=== PATIENT | female | born 1985 | race African-American/Black ===

== ENCOUNTER 2017-08-07 18:41 | Emergency (ER) | payer MEDICAID, OTHER ==
[~2017-08-07] VITALS: Ht 152.4 cm; Wt 61.7 kg
[~2017-08-07 18:41] MED LIST: IBUPROFEN600 MG ORAL; NEXIUM40 MG ORAL; PREDNISONE20 MG ORAL; RANITIDINE HCL150 MG ORAL; TYLENOL EXTRA500 MG ORAL; ZOFRAN ODT4 MG ORAL; ZOFRAN4 M1 ORAL
[2017-08-07] MEDS ORDERED: NKM (18:54)
[2017-08-07 19:05] VITALS: BP 107/64
[2017-08-07] MEDS ORDERED: Methocarbamol 500mg tab ORAL ONE (19:15)
[2017-08-07] MEDS ORDERED: TYLENOL EXTRA500 MG ORAL (19:23)
[2017-08-07] MEDS ORDERED: ROBAXIN500 MG PO (19:23)
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
[2017-08-07 19:40] VITALS: BP 0/0
== END 2017-08-07 19:40 | disposition home or self-care (01) ==
LOC: EMR 19:25
DX: M54.2 Cervicalgia (principal); R07.9 Chest pain, unspecified
CPT/HCPCS: 99284

== ENCOUNTER 2017-09-03 15:48 | Emergency (ER) | payer MEDICAID, OTHER ==
[~2017-09-03] VITALS: Ht 152.4 cm; Wt 61.2 kg
[~2017-09-03 15:48] MED LIST changes: +NKM; +ROBAXIN500 MG PO
[2017-09-03 16:22] VITALS: BP 101/68
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
--- NOTE | 2017-09-03 16:56 | Diagnostic Imaging Report ---
Indication: Chest pain Technique: XRAY Chest 2v Comparison: 04/04/2014 Findings: Heart size and mediastinal contours within normal limits and stable compared to the prior exam. There is no focal airspace consolidation, pleural effusion or pneumothorax. No acute osseous abnormality identified. Cholecystectomy clips noted in the right upper quadrant. Impression: No radiographic evidence of acute cardiopulmonary disease.
[2017-09-03 17:01] VITALS: BP_SYST 84; BP_SYST 99; BP_DIAS 50; BP_DIAS 60
[2017-09-03 17:54] LABS: BASOPHILS % (AUTO) 2.6 % (0.0-2.0); EOSINOPHILS % (AUTO) 1.4 % (0.0-3.0); HEMOGLOBIN 11.9 G/DL (12.0-16.0); LYMPHOCYTES % (AUTO) 43.3 % (20.0-45.0); MEAN CORPUSCULAR VOLUME 79 FL (80-99); MONOCYTES % (AUTO) 11.2 % (1.0-10.0); NEUTROPHILS % (AUTO) 41.5 % (45.0-75.0); PLATELET COUNT 214 K/UL (150-450); RED BLOOD COUNT 4.71 M/UL (4.20-5.40); RED CELL DISTRIBUTION WIDTH 13.1 % (11.6-14.8); WHITE BLOOD COUNT 4.1 K/UL (4.8-10.8)
[2017-09-03] MEDS ORDERED: IBUPROFEN600 MG ORAL (18:22)
[2017-09-03 18:35] VITALS: BP 108/68
== END 2017-09-03 18:35 | disposition home or self-care (01) ==
LOC: EMR 16:30
DX: S20.212A Contusion of left front wall of thorax, initial encounter (principal); V43.52XA Car driver injured in collision with other type car in traffic accident, initial encounter; Y92.410 Unspecified street and highway as the place of occurrence of the external cause; D64.9 Anemia, unspecified; R20.0 Anesthesia of skin
CPT/HCPCS: 36415; 71046; 85025; 96360; 99283

== ENCOUNTER 2017-09-29 17:44 | Emergency (ER) | payer OTHER ==
[~2017-09-29] VITALS: Ht 152.4 cm; Wt 62.6 kg
[2017-09-29 17:54] VITALS: BP 100/61
--- NOTE | 2017-09-29 18:24 | Emergency Room Report ---
History of Present Illness General Chief Complaint: Toothache Source: Patient, Medical Record Present Illness HPI 32-year-old female patient presents ER complaining of tooth pain for the past 2 days. Patient reports history of, infection, was seen by dentist 2 days ago and earlier today. Reports that she is currently being treated with Keflex and Motrin. States Motrin is not helping with her pain. States that that does not give her further pain medication. Denies fever, chest pain, shortness of breath. Reports she is going to have her wisdom teeth extracted. Allergies: Coded Allergies: METOCLOPRAMIDE (Verified Allergy, Unknown, 09/03/17) Patient History Past Medical History: see triage record Last Menstrual Period: 09/20/17 Reviewed Nursing Documentation: PMH: Agreed; PSxH: Agreed Nursing Documentation-PMH Past Medical History: No History, Except For Hx Cardiac Problems: No - anemia Hx Cancer: No Hx Gastrointestinal Problems: Yes - pancreatitis Hx Neurological Problems: No Review of Systems All Other Systems: negative except mentioned in HPI Physical Exam Vital Signs Date Time Temp Pulse Resp B/P (MAP) Pulse Ox O2 Delivery O2 Flow Rate FiO2 09/29/17 17:54 97.9 69 18 100/61 98 Room Air 97.9 Sp02 EP Interpretation: reviewed, normal General Appearance: well appearing, no apparent distress, alert, GCS 15, non- toxic Head: normocephalic, atraumatic Eyes: bilateral eye normal inspection, bilateral eye PERRL ENT: hearing grossly normal, normal pharynx, no angioedema, normal voice, TMs + canals normal, uvula midline, moist mucus membranes, other - multiple dental caries noted, no erythema or edema noted, no drainage Neck: full range of motion, no bony tend Respiratory: lungs clear, normal breath sounds, no rhonchi, no respiratory distress, no accessory muscle use, no wheezing, speaking full sentences Cardiovascular #1: regular rate, rhythm, no edema Neurologic: alert, oriented x3, responsive, motor strength/tone normal, sensory intact Psychiatric: mood/affect normal Skin: no rash Lymphatic: no adenopathy Medical Decision Making PA Attestation Dr. Nevarez is my supervising Physician whom patient management has been discussed with. Diagnostic Impression: Primary Impression: Toothache ER Course Pt. presents to the ED c/o dental infection. Ddx considered but are not limited to cellulitis, abscess, dental caries, gingivitis. Does not require imaging at this time. Vital signs: are WNL, pt. is afebrile ED INTERVENTIONS: CURES reports, no pain medication refills this month. Will provide patient with pain medication in the ER. Patient will be driven home by brother. Nontoxic appearing, speaking full sentences, no active draining, mild edema, no trismus or vision changes. No facial swelling, no erythema or edema, low suspicion for cellulitis or preseptal cellulitis. F/u with PCP and dentist for further treatment for pain symptoms. Continue taking medications as previously instructed. DISCHARGE: continue taking medications as previously instructed. At this time pt. is stable for d/c to home. Patient is resting comfortably, in no acute distress, nontoxic appearing, talking and smiling without difficulty. Will provide printed patient care instructions and any necessary prescriptions. Care plan and follow up instructions have been discussed with the patient prior to discharge. Patient instructed to follow-up with primary care provider in 2 - 3 days. Followup with dentist. Patient questions asked and answered. Patient reports understanding and agreement to treatment plan. ER precautions given. Patient instructed to return to ER immediately for any new or worsening of symptoms including but not limited to fever, worsening of pain symptoms, worsening of erythema, red streaking. - Please note that this Emergency Department Report was dictated using [employer] worker technology software, occasionally this can lead to erroneous entry secondary to interpretation by the dictation equipment. Last Vital Signs Date Time Temp Pulse Resp B/P (MAP) Pulse Ox O2 Delivery O2 Flow Rate FiO2 09/29/17 17:54 97.9 69 18 100/61 98 Room Air 97.9 Disposition: HOME, SELF-CARE Condition: Stable Referrals: Pauline SMITH,REFERRING (PCP) Patient Instructions: Dental Pain Additional Instructions: Followup with primary care provider in 3 -5 days. Followup with dentist discuss further treatment pain symptoms. Take medications as directed. Patient questions asked and answered. ER precautions given, patient instructed to return to ER immediately for any new or worsening of symptoms. Mo Celaya Sep 29, 2017 18:24
[2017-09-29] MEDS ORDERED: Tylenol #3 tab (300mg/30mg) ORAL ONE (18:30)
[2017-09-29] MEDS ORDERED: Norco 5mg/325mg tab ORAL ONE (18:30)
[2017-09-29] MEDS ORDERED: Ketorolac 30mg Inj IM ONE (18:30)
[2017-09-29 19:13] VITALS: BP 122/71
== END 2017-09-29 19:14 | disposition home or self-care (01) ==
LOC: EMR 18:06
DX: K08.89 Other specified disorders of teeth and supporting structures (principal)
CPT/HCPCS: 96372; 99283; J1885

== ENCOUNTER 2018-02-18 20:14 | Emergency (ER) | payer OTHER ==
[~2018-02-18] VITALS: Ht 152.4 cm; Wt 61.2 kg
[2018-02-18 20:38] VITALS: BP 100/66
[2018-02-18] MEDS ORDERED: BACTRIM DS TAB1 EAC1 ORAL (20:49)
[2018-02-18] MEDS ORDERED: IBUPROFEN600 MG ORAL (20:49)
[2018-02-18 20:55] VITALS: BP 103/67
--- NOTE | 2018-02-18 21:22 | Emergency Room Report ---
History of Present Illness General Chief Complaint: Pain Source: Patient Present Illness HPI Patient presents with complaints of right finger pain on the ring finger Pain started 2-3 days ago Patient feels the pain of the distal tip area Patient also had her fingernails painted 3 days ago Denies any other trauma denies any fevers or chills pain is worse with touch after soaking the finger in warm water it was somewhat improved Denies any discharge Allergies: Coded Allergies: METOCLOPRAMIDE (Verified Allergy, Unknown, 09/03/17) Patient History Past Medical History: see triage record Pertinent Family History: none Last Menstrual Period: 02/07/2018 Now: No Reviewed Nursing Documentation: PMH: Agreed; PSxH: Agreed Nursing Documentation-PMH Past Medical History: No Stated History Hx Cardiac Problems: No - anemia Hx Cancer: No Hx Gastrointestinal Problems: Yes - pancreatitis Hx Neurological Problems: No Review of Systems All Other Systems: negative except mentioned in HPI Physical Exam Vital Signs Date Time Temp Pulse Resp B/P (MAP) Pulse Ox O2 Delivery O2 Flow Rate FiO2 02/18/18 20:32 98.1 69 18 100/66 100 Room Air Sp02 EP Interpretation: reviewed, normal General Appearance: well appearing, no apparent distress Head: normocephalic, atraumatic Eyes: bilateral eye PERRL, bilateral eye EOMI ENT: hearing grossly normal, normal pharynx, TMs + canals normal, uvula midline Neck: supple Respiratory: lungs clear Cardiovascular #1: regular rate, rhythm Musculoskeletal: other - Some discomfort palpated to the tip of the right ring finger on the palmar aspect mild swelling is noted no obvious fluctuance Neurologic: alert, oriented x3 Skin: other - As above Lymphatic: no adenopathy Procedures Splinting Splinting : Consent: Verbal Location: Right ring finger Splint: Finger splint Pre-Proc Neuro Vasc Exam: normal Post-Proc Neuro Vasc Exam: normal Patient Tolerated: Well Complications: None Medical Decision Making Diagnostic Impression: Primary Impression: finger infection ER Course Patient has findings consistent with likely early felon formation. No obvious paronychia no obvious fluctuance at this point Patient denies any other trauma Given the early presentation patient will be treated symptomatically And will have close follow-up Last Vital Signs Date Time Temp Pulse Resp B/P (MAP) Pulse Ox O2 Delivery O2 Flow Rate FiO2 02/18/18 20:55 98.2 62 18 103/67 98 Room Air Status: improved Disposition: HOME, SELF-CARE Condition: Improved Scripts Ibuprofen* (MOTRIN*) 600 Mg Tablet 600 MG ORAL Q8H PRN for For Pain, #20 TAB 0 Refills Prov: Antonieta Nevarez DO 02/18/18 Trimethoprim/Sulfamethoxazole 160/800* (BACTRIM DS TABLET*) 1 Each Tablet 1 TAB ORAL Q12H, #14 TAB 0 Refills Prov: Antonieta Nevarez DO 02/18/18 Referrals: Pauline SMITH,REFERRING (PCP) Patient Instructions: Fingertip Infection Additional Instructions: Patient is provided with the discharge instructions notified to follow up with primary doctor in the next 2-3 days otherwise return to the er with any worsening symptoms. Please note that this report is being documented using [employer] technology. This can lead to erroneous entry secondary to incorrect interpretation by the dictating instrument. Antonieta Nevarez DO Feb 18, 2018 21:22
== END 2018-02-18 20:56 | disposition home or self-care (01) ==
LOC: EMR 20:46
DX: L08.9 Local infection of the skin and subcutaneous tissue, unspecified (principal)
CPT/HCPCS: 29130; 99283

== ENCOUNTER 2018-02-21 18:05 | Emergency (ER) | payer OTHER ==
[~2018-02-21] VITALS: Ht 152.4 cm; Wt 62.6 kg
[~2018-02-21 18:05] MED LIST changes: +BACTRIM DS TAB1 EAC1 ORAL
--- NOTE | 2018-02-21 18:59 | Emergency Room Report ---
History of Present Illness General Chief Complaint: Skin Rash/Abscess Source: Patient Present Illness HPI 32-year-old female patient presents the ER complaining of finger infection for the past 6 days. Reports previously seen in the ER a few days ago and discharged home with antibiotics, states has been taking antibiotics. Reports pain is increased since that time, states now still appears to be "pus under the skin ". Denies drainage. Denies fever, shortness of breath. Reports right hand dominant. Does not know tetanus vaccination status. Allergies: Coded Allergies: METOCLOPRAMIDE (Verified Allergy, Unknown, 09/03/17) Patient History Past Medical History: see triage record Last Menstrual Period: 2 weeks ago Reviewed Nursing Documentation: PMH: Agreed; PSxH: Agreed Nursing Documentation-PMH Past Medical History: No Stated History Hx Cardiac Problems: No - anemia Hx Cancer: No Hx Gastrointestinal Problems: Yes - pancreatitis Hx Neurological Problems: No Review of Systems All Other Systems: negative except mentioned in HPI Physical Exam Vital Signs Date Time Temp Pulse Resp B/P (MAP) Pulse Ox O2 Delivery O2 Flow Rate FiO2 02/21/18 18:47 98.4 72 16 94/33 98 Room Air Sp02 EP Interpretation: reviewed, normal General Appearance: well appearing, no apparent distress, alert, GCS 15, non- toxic Head: normocephalic, atraumatic Eyes: bilateral eye normal inspection, bilateral eye PERRL ENT: hearing grossly normal, normal pharynx, no angioedema, normal voice, uvula midline, moist mucus membranes Neck: full range of motion Respiratory: lungs clear, normal breath sounds, no rhonchi, no respiratory distress, no accessory muscle use, no wheezing, speaking full sentences Cardiovascular #1: regular rate, rhythm, no edema Cardiovascular #2: 2+ radial (R), 2+ radial (L) Musculoskeletal: back normal, digits/nails normal, gait/station normal, normal range of motion, non-tender Neurologic: alert, oriented x3, responsive, motor strength/tone normal, sensory intact Skin: other - Right hand ring finger shows obvious paronychia at distal tip of nail bed, no surrounding erythema or edema Procedures Incision and Drainage Incision and Drainage : Consent: Verbal Site: right hand ring finger Blade Size: 11 I & D Procedure: betadine prep, sterile drapes applied, sterile dressing applied Wound Location: upper extremity Wound's Depth, Shape: superficial Wound Length (cm): 1 Wound Explored: contaminated Irrigated w/ Saline (ccs): 10 Anesthesia: other - topical LET Volume Anesthetic (ccs): 1 Splint Applied?: No Sling Applied?: No Patient Tolerated: Well Complications: None Medical Decision Making PA Attestation Dr. Menjivar is my supervising Physician whom patient management has been discussed with. Diagnostic Impression: Primary Impression: Paronychia ER Course Pt. presents to the ED c/o finger pain and swelling. Ddx considered but are not limited to rash, cellulitis, abscess, felon, paronychia, hangnail, herpetic haritha. Vital signs: are WNL, pt. is afebrile ED COURSE: PE exam consistent with paronychia. Topical LET applied to wound. I&D of paronychia performed. Pus expressed from finger. Patient finger no longer swollen, patient reports decrease in pain symptoms. Sterile dressing and Bacitracin applied to wound following procedure. Patient instructed to keep wound clean and dry and to follow-up with primary care provider in 2-3 days for wound check. Will discharge home with Keflex and Tylenol #3 for pain. ER precautions given. Seen by Dr. Menjivar, agrees with assessment and treatment plan. DISCHARGE At this time pt. is stable for d/c to home. Patient resting comfortably, in no acute distress, nontoxic appearing, laughing and smiling. Will provide printed patient care instructions and any necessary prescriptions. Care plan and follow up instructions have been discussed with the patient prior to discharge. Patient instructed to follow-up with primary care provider in 2 - 3 days for wound recheck. Patient questions asked and answered. Patient reports understanding and agreement to treatment plan. ER precautions given. Patient instructed to return to ER immediately for any new or worsening of symptoms including but not limited to fever, worsening of pain symptoms, worsening of erythema, red streaking. Please note that this Emergency Department Report was dictated using [employer] out worker technology software, occasionally this can lead to erroneous entry secondary to interpretation by the dictation equipment. Last Vital Signs Date Time Temp Pulse Resp B/P (MAP) Pulse Ox O2 Delivery O2 Flow Rate FiO2 02/21/18 18:47 98.4 72 16 94/33 98 Room Air Status: improved Disposition: HOME, SELF-CARE Condition: Stable Scripts Acetaminophen With Codeine (T#3) (TYLENOL #3 TAB*) Y Tab 1 TAB ORAL Q6HR PRN for For Pain, #8 TAB Prov: Mo Celaya 02/21/18 Cephalexin* (KEFLEX*) 500 Mg Capsule 500 MG ORAL EVERY 12 HOURS, #14 CAP 0 Refills Prov: Mo Celaya 02/21/18 Patient Instructions: Paronychia, [id number] Additional Instructions: Followup with primary care provider or return to ER in 2-3 days for wound check. Continue taking antibiotics as previously instructed. Take medications as directed. Pain medication may cause drowsiness, do not take prior to drinking, driving, operating heavy machinery. Patient questions asked and answered. ER precautions given, patient instructed to return to ER immediately for any new or worsening of symptoms. Mo Celaya Feb 21, 2018 18:59
[2018-02-21] MEDS ORDERED: LET 3ml Soln TOPIC ONE (19:00)
[2018-02-21 19:12] VITALS: BP 95/54
[2018-02-21] MEDS ORDERED: Tetanus/Diptheria/Pertussis Vaccine 0.5ml Syr IM ONE (19:15)
[2018-02-21 20:00] VITALS: BP 105/52
[2018-02-21] MEDS ORDERED: CEPHALEXIN500 MG ORAL (20:00)
[2018-02-21] MEDS ORDERED: ACETAMINOPHEN-1 EAC1 ORAL (20:00)
== END 2018-02-21 20:00 | disposition home or self-care (01) ==
LOC: EMR 18:58
DX: L03.011 Cellulitis of right finger (principal); Z23 Encounter for immunization
CPT/HCPCS: 90471; 90715; 99283